=== PATIENT | female | born 1995 | race Caucasian/White ===

== ENCOUNTER 2022-02-18 14:52 | Inpatient (IN) ==
[2022-02-18 14:48] LABS: Basophils % 0.3 %; Eosinophils # 0.5 K/mcL (0.0-0.6); Eosinophils % 3.9 %; Hematocrit 35.9 % (35.3-44.9); Hemoglobin 11.1 g/dL (11.5-15.4); Immature Granulocytes % 1.1 % (0-4); Lymphocytes # 2.7 K/mcL (0.6-4.6); Lymphocytes % 23.3 %; Mean Corpuscular HGB Conc 30.9 g/dL (31.6-35.5); Mean Corpuscular Hemoglobin 26.1 pg (28.0-33.3); Mean Corpuscular Volume 84.3 fL (83.0-100.0); Mean Platelet Volume 10.3 fL (9.4-12.4); Monocytes # 0.6 K/mcL (0.0-1.3); Monocytes % 5.5 %; Neutrophils # 7.7 K/mcL (1.6-8.9); Platelet Count 329 K/mcL (140-400); Red Blood Count 4.26 M/mcL (3.82-4.97); Red Cell Distribution Width 15.9 % (11.5-14.5); Segmented Neutrophils % 65.9 %; White Blood Count 11.6 K/mcL (4.3-11.1)
[~2022-02-18 14:52] MED LIST: Azithromycin 500 MG in 0.9 % Sodium Chloride 250 ML IVPB PRN; EPHEDrine sulfate 50 MG/10 ML VIAL IVP PRN; Famotidine 20 MG/2 ML VIAL IVP PRN; Lidocaine 1% 20 ML MDV INFILT PRN; Metoclopramide 10 MG/2 ML VIAL IVP PRN; Naloxone 0.4 MG/ML INJ IVP PRN; Ondansetron 4 MG/2 ML VIAL IVP PRN
[2022-02-18] MEDS ORDERED: miSOPROStoL 25 MCG TABLET VG PRN (14:55)
[2022-02-18 15:10] LABS: Alanine Aminotransferase 16 Units/L (7-52); Aspartate Amino Transferase 18 Units/L (13-39); BUN/Creatinine Ratio 18 (6-26); Blood Urea Nitrogen 8 mg/dL (6-20); Lactate Dehydrogenase 169 Units/L (140-271); Uric Acid 5.5 mg/dL (2.3-7.6)
[2022-02-18] MEDS: Ringers Solution, Lactated 1,000 ML IVC SCH ×2 (15:10→23:09)
[2022-02-18 15:24] LABS: Amphetamine Screen,Urine Negative ng/mL (Cutoff=1000); Barbiturate Screen,Urine Negative ng/mL (Cutoff=200); Benzodiazepines Screen,Urine Negative ng/mL (Cutoff=200); Cannabinoid Screen,Urine Negative ng/mL (Cutoff = 50); Cocaine Screen,Urine Negative ng/mL (Cutoff= 300); Creatinine,Urine 35 mg/dL; Opiate Screen,Urine Negative ng/mL (Cutoff=300); Phencyclidine Screen,Urine Negative ng/mL (Cutoff=25); Protein/Creatinine Ratio,Urine 0.11 mg/mg (0.00-0.20)
[2022-02-18] MEDS ORDERED: Oxytocin 30 UNIT/503 ML BAG IVC SCH (20:15)
[2022-02-19] MEDS: Ringers Solution, Lactated 1,000 ML IVC SCH ×2 (07:32→15:01)
[2022-02-19] MEDS: *HR* Nalbuphine 10 MG/ML AMPUL IV PRN ×2 (09:15→13:37)
[2022-02-19] MEDS: Epidural Premix (fent/bupiv) 110 ML EP SCH ×2 (09:17→15:24)
[2022-02-19] MEDS ORDERED: *HR* FentaNYL (PF) 100 MCG/2 ML VIAL ONE (16:22)
[2022-02-19] MEDS ORDERED: Lidocaine/EPI 1:200k 2% PF 20 ML VIAL ONE (20:36)
[2022-02-19] MEDS ORDERED: Ondansetron 4 MG/2 ML VIAL ONE (20:37)
[2022-02-19] MEDS ORDERED: Acetaminophen IV 1,000 MG/100 ML BAG IVPB ONE (20:37)
[2022-02-19] MEDS ORDERED: CeFAZolin 2,000 MG/120 ML BAG IVPB ONE (20:57)
[2022-02-19] MEDS ORDERED: Ketorolac 30 MG/ML VIAL ONE (21:06)
[2022-02-19] MEDS ORDERED: *HR* Morphine Sulfate/PF 10 MG/10 ML AMPUL ONE (21:10)
[2022-02-19] MEDS ORDERED: *HR* HYDROmorphone PF 0.5 MG/0.5 ML SYRINGE IVP PRN (21:28)
[2022-02-19] MEDS ORDERED: Ondansetron 4 MG/2 ML VIAL IVP PRN (21:28)
[2022-02-19] MEDS ORDERED: Ringers Solution, Lactated 1,000 ML ONE (22:03)
[2022-02-19] MEDS ORDERED: Chloroprocaine 3%/PF 20 ML VIAL INFILT ONE (22:22)
[2022-02-20] MEDS ORDERED: *HR* OxyCODONE Immed Rel 5 MG TABLET PO PRN ×2 (00:58)
[2022-02-20] MEDS ORDERED: Ondansetron 4 MG/2 ML VIAL IVP PRN (00:58)
[2022-02-20] MEDS ORDERED: Oxytocin 30 UNIT/503 ML BAG IVC SCH (00:58)
[2022-02-20] MEDS ORDERED: Metoclopramide 10 MG/2 ML VIAL IVP PRN (00:58)
[2022-02-20 04:24] LABS: Basophils % 0.1 %; Hematocrit 28.5 % (35.3-44.9); Immature Granulocytes % 0.8 % (0-4); Lymphocytes # 1.9 K/mcL (0.6-4.6); Lymphocytes % 9.2 %; Mean Corpuscular HGB Conc 32.6 g/dL (31.6-35.5); Mean Corpuscular Hemoglobin 26.8 pg (28.0-33.3); Mean Corpuscular Volume 82.1 fL (83.0-100.0); Mean Platelet Volume 10.1 fL (9.4-12.4); Monocytes # 0.7 K/mcL (0.0-1.3); Monocytes % 3.3 %; Platelet Count 243 K/mcL (140-400); Red Blood Count 3.47 M/mcL (3.82-4.97); Red Cell Distribution Width 15.7 % (11.5-14.5); Segmented Neutrophils % 86.6 %
[2022-02-20] MEDS ORDERED: Ringers Solution, Lactated 1,000 ML IVC SCH (04:30)
[2022-02-20 04:31] LABS: Hemoglobin 9.3 g/dL (11.5-15.4); Neutrophils # 18.2 K/mcL (1.6-8.9)
[2022-02-20] MEDS: Acetaminophen 325 MG TABLET PO SCH ×4 (04:32→22:44)
[2022-02-20] MEDS: Prenatal Vit/FA 1 EACH TABLET PO SCH (09:31)
[2022-02-20] MEDS: Simethicone 80 MG TAB.CHEW PO SCH ×3 (09:31→21:00)
[2022-02-20] MEDS: Ketorolac 30 MG/ML VIAL IVP SCH ×2 (11:05→17:01)
[2022-02-20] MEDS ORDERED: Sennosides 8.6 MG TABLET PO SCH (21:00)
[2022-02-20 21:12] VITALS: O2SAT 97
[2022-02-21] MEDS: Ibuprofen 600 MG TABLET PO SCH ×2 (04:41→10:28)
[2022-02-21] MEDS: Acetaminophen 325 MG TABLET PO SCH ×2 (04:41→10:28)
[2022-02-21 07:57] VITALS: BP 113/73; PULSE 82; TEMP 97.6
[2022-02-21] MEDS: Prenatal Vit/FA 1 EACH TABLET PO SCH (08:52)
== END 2022-02-21 12:56 | disposition home or self-care (01) | DRG 788 ==
LOC: 1NENULAB → 1NENUOBS 02-20 00:58
PROVIDERS: ADMIT Obstetrics & Gynecology; ATTEND Obstetrics & Gynecology